=== PATIENT | male | born 1975 | race Caucasian/White ===

== ENCOUNTER 2022-09-28 14:03 | Outpatient (OUT) | payer BC, SELFPAY ==
--- NOTE | 2022-09-28 | XR_ITS ---
The [address] [address] Patient Name: KE ÁLVAREZ MRN: [id number] date: 1975 Sex: M Assigned Patient Location: [facility] Current Patient Location: Accession/Order Number: [id number] Exam Date: 09/28/2022 14:28 Report Date: 09/29/2022 09:00 At the request of: HELLEN MONK Procedure: XR foot CONSTANCE min 3V EXAMINATION: XR foot CONSTANCE min 3V HISTORY: IMAGING FOR PODIATRY ; bilateral foot pain COMPARISON: No relevant comparison available. FINDINGS: RIGHT FINDINGS: BONES: Marked lateral deviation of the toes. Dorsal lateral dislocation and proximal retraction persistent flexion of the second and third toes. Of the second toe at the metatarsophalangeal joint. SOFT TISSUES: No visible soft tissue swelling. OTHER: Negative. LEFT FINDINGS: BONES: Persistent flexion of the second toe. Mild lateral deviation at the first metatarsophalangeal joint. SOFT TISSUES: No visible soft tissue swelling. OTHER: Negative. XR/XR foot CONSTANCE min 3V IMPRESSION: RIGHT CONCLUSION: 1. Marked hallux valgus of the first through fourth toes, prominent bunion formation, and dislocation of the second metatarsophalangeal joint. 2. Persistent flexion of the second third toes suggest hammertoe. LEFT CONCLUSION: 1. Mild bunion formation and suspected hammertoe of second digit. Electronically authenticated by: WILL VÁZQUEZ Date: 09/29/2022 09:00
== END 2022-09-28 14:04 | disposition home or self-care (01) ==
LOC: RAD 14:03
PROVIDERS: Visit Provider Podiatrist Foot & Ankle Surgery
DX: S92.324A Nondisplaced fracture of second metatarsal bone, right foot, initial encounter for closed fracture (principal)
CPT/HCPCS: 73630

== ENCOUNTER 2023-01-26 08:56 | Outpatient (OUT) | payer BC, SELFPAY ==
--- NOTE | 2023-01-26 09:05 | ECG_ITS ---
The [facility] Test Date: 2023-01-26 Pat Name: KE ÁLVAREZ Department: Room: - Gender: Male Night Baker: : 1975 Requested By: HELLEN MONK Order Number: [id number] Reading MD: ARIELA SILVER Measurements Intervals [place] Rate: 51 P: 51 [place]: 171 QRS: 24 QRSD: 92 T: 28 QT: 419 QTc: 388 Interpretive Statements SINUS BRADYCARDIA No previous ECG available for comparison Electronically Signed On 01-27-2023 7:06:20 EST by ARIELA SILVER
--- NOTE | 2023-01-26 09:50 | P.GSHP_ITS ---
History of Present Illness History of Present Illness Chief complaint: hallux valgus of right foot, deformities of toes Narrative: Patient presents for preadmission testing. The patient states he's had right foot pain with toe deformities for at least ten years. 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 He denies numbness, tingling, weakness, or any other complaints. Review of Systems ROS Narrative REVIEW OF SYSTEMS: Negative except as stated in HPI, ten or more systems reviewed. Constitutional: No fever , chills, weakness ENT: No sore throat or epistaxis Cardiovascular: No edema, chest pain, palpitations, or activity intolerance Respiratory: No shortness of breath, cough, or wheezing Musculoskeletal: No joint pain or swelling Gastrointestinal: No abdominal pain, constipation, diarrhea, or vomiting Genitourinary: No dysuria or hematuria Neurological: No numbness, tingling, weakness, or headache Psychiatric: No mood changes PFSH PFSH Medical History (Updated 01/26/23 @ 09:22 by Rosie Mason NP) Hypertension ?I10 - Essential (primary) hypertension (ICD-10) Irregular heart beat ?I49.9 - Cardiac arrhythmia, unspecified (ICD-10) Toe dislocation ?S93.106A - Unspecified dislocation of unspecified toe(s), initial encounter (ICD-10) Hammertoe ?M20.40 - Other hammer toe(s) (acquired), unspecified foot (ICD-10) Toe deformity ?M20.60 - Acquired deformities of toe(s), unspecified, unspecified foot (ICD- 10) Hallux valgus ?M20.10 - Hallux valgus (acquired), unspecified foot (ICD-10) Surgical History (Updated 01/26/23 @ 09:22 by Rosie Mason NP) History of arthroscopy of shoulder ?Z98.890 - Other specified postprocedural states (ICD-10) History of arthroscopy of shoulder ?Z98.890 - Other specified postprocedural states (ICD-10) History of arthroscopy of shoulder ?Z98.890 - Other specified postprocedural states (ICD-10) Family History (Updated 01/26/23 @ 09:22 by Rosie Mason NP) Other CHF (congestive heart failure) Family history of lung cancer Social History (Updated 01/26/23 @ 09:17 by Rosie Mason NP) Within the past year, how often did you have a drink containing alcohol: monthly or less Smoking status: Never smoker Non-prescribed substance use: denies use Previous occupational history: construction Highest level of school completed/degree received: high school graduate Meds Home Medications and Allergies Home Medications Medication Instructions Recorded Confirmed Type duloxetine 20 mg capsule,delayed 20 mg PO DAILY 01/26/23 01/26/23 History release (Cymbalta) metoprolol tartrate 50 mg tablet 50 mg PO DAILY 01/26/23 01/26/23 History (Lopressor) Allergies Allergy/AdvReac Type Severity Reaction Status Date / Time No Known Drug Allergies Allergy Verified 01/26/23 09:15 Exam Narrative Exam Narrative: Constitutional: Awake, alert, comfortable, well-appearing, nontoxic, interactive, vital signs as charted Head: Normocephalic, atraumatic Neck: Supple, normal appearance, normal range of motion, no meningeal signs, no lymphadenopathy Respiratory: No respiratory distress, breath sounds clear Cardiovascular: Regular rate and rhythm, strong and regular heart tones Musculoskeletal: Obvious right hallux valgus with hammertoes of Toes two through five on the right foot, limited range of motion, good capillary refill, sensation intact Skin: No rashes or induration, no lesions, only visible skin inspected Neuro: No neurological deficits, normal sensation Psychiatric: Oriented ?3, normal affect Assessment and Plan Assessment and Plan (1) Toe dislocation: (2) Hammertoe: (3) Toe deformity: (4) Hallux valgus: Plan Right 1st MPJ fusion with possible bone graft, metatarsal osteotomy, soft tissue balancing and correction of toe contractures as needed scheduled with Dr. Brown 02/02/2023.
[2023-01-26 10:00] LABS: BUN Creatinine Ratio 22.9; Calcium 9.4 mg/dL (8.5-10.1); Carbon Dioxide 29.8 mmol/L (21.0-32.0); Chloride 102 mmol/L (98-107); Estimated GFR (African America >60 (>=60); Estimated GFR (Non-African Ame 52 (>=60); Glucose 103 mg/dL (74-106); Potassium 4.8 mmol/L (3.5-5.1); Sodium 140 mmol/L (136-145)
== END 2023-01-26 08:57 | disposition home or self-care (01) ==
LOC: PST 08:58
PROVIDERS: Visit Provider Podiatrist Foot & Ankle Surgery
DX: Z01.812 Encounter for preprocedural laboratory examination (principal); M20.11 Hallux valgus (acquired), right foot; M20.5X1 Other deformities of toe(s) (acquired), right foot
CPT/HCPCS: 36415; 80048; 93005; G0463

== ENCOUNTER 2023-02-02 06:40 | Day surgery (SDC) | payer BC, SELFPAY ==
[2023-01-26 09:40] VITALS: BP 144/88; PULSE 55; RESP 14; TEMP 36.3; O2SAT 97; BMI 28.6
[2023-02-02] VITALS (26 sets, daily range): BP systolic 101–138; BP diastolic 56–96; PULSE 65–97; RESP 5–24; TEMP 36.2–36.6; O2SAT 87–96; BMI 28.3
--- NOTE | 2023-02-02 | FL_ITS ---
[address] [address] Patient Name: KE ÁLVAREZ MRN: [id number] date: 1975 Sex: M Assigned Patient Location: [facility] Current Patient Location: [facility] Accession/Order Number: [id number] Exam Date: 02/02/2023 08:00 Report Date: 02/07/2023 09:13 At the request of: HELLEN MONK Procedure: FL fluoroscopy <1hr NON-READ EXAM: FL fluoroscopy <1hr NON-READ HISTORY: MPJ FUSION TECHNIQUE: FINDINGS: Please see Operative Report. Electronically authenticated by: RADIOLOGIST NO Date: 02/07/2023 09:13
--- OUTSIDE RECORDS SUMMARY | 2023-02-02 06:42 | XMS_ITS | CCD ---
Author Name Unknown Address [address] [place] [address] Organization [facility] Care Team Providers Care Unit Manager [employer] Name Role Phone ROXANN BARRIOS Unavailable Unavailable SOPHIE, ROXANN Unavailable Unavailable HOUSE, NAKIA Unavailable Unavailable PROVIDER, UNKNOWN Unavailable Unavailable PROVIDER, UNKNOWN Unavailable Unavailable HOUSE, NAKIA Unavailable Unavailable PROVIDER, UNKNOWN Unavailable Unavailable ROEHRS, ELIEL Unavailable Unavailable HOUSE, NAKIA Unavailable Unavailable PROVIDER, UNKNOWN Unavailable Unavailable PROVIDER, UNKNOWN Unavailable Unavailable HOUSE, NAKIA Unavailable Unavailable PROVIDER, UNKNOWN Unavailable Unavailable PROVIDER, UNKNOWN Unavailable Unavailable HOUSE, NAKIA Unavailable Unavailable HOUSE, DR CRUZ Admitting Unavailable HOUSE, DR CRUZ Attending Unavailable HOUSE, DR CRUZ Consulting Unavailable [place], DR ATTILA Aviles Consulting Unavailable HOUSE, DR CRUZ Attending Unavailable HOUSE, DR CRUZ Admitting Unavailable HOUSE, DR CRUZ Consulting Unavailable [facility], DR WILL Nichols Consulting Unavailable [facility], Occupation Attending Unavailable Problems Active Problems Problem Classification Problem Date Documented Da te Episodic/Chronic Sprains and strains (4 sources) Superior glenoid labrum lesion of left shoulder, initial encounter; Translations: [SUP GLND LABRUM LES LT SHLDR INIT] Onset: 12-18-2020 Episodic Unclassified (2 sources) CONTACT W/AND (SUSP) EXPOS COVID-19; Translations: [CONTACT W/AND (SUSP) EXPOS COVID-19] Onset: 02-15-2021 Viral infection (1 source) COVID-19; Translations: [COVID-19] Onset: 02-15-2021 Past or Other Problems Problem Classification Problem Date Documented Da te Episodic/Chronic Unclassified (1 source) CONTACT W/AND (SUSP) EXPOS COVID-19; Translations: [CONTACT W/AND (SUSP) EXPOS COVID-19] Onset: 02-11-2021 Results Test Name Value Interpretation Reference Range Facility Covid-19 PCR (CVDTBH)on SARS-CoV-2 (COVID-19) RNA PARIS+probe Ql (Unsp spec) Detected Critically abnormal NOT DETECTED [facility] Comment on above: Result Comment: This test is not yet deepak roved or cleared by the [place] FDA. When there are no FDA-approved or cleared tests available, and other criteria are met, FDA can make tests available under an emergency access mechanism called an Emergency Use Authorization (EUA). The EUA for this test is supported by the Apartment Maintenance Technician of Health and Human Service's (HHS's) declaration that circumstances exist to justify the emergency use of in vitro diagnostics for the detection and/or diagnosis of the virus that causes COVID-19. This EUA will remain in effect (meaning this test can be used) for the duration of the COVID-19 declaration justifying emergency of IVDs, unless it is terminated or revoked by FDA (after which the test may no longer be used). Performed By: #### [facility] #### [facility] [address] [place] [address] Dr. Devin Gordon MRI SHOULDER LT WO CONon MRI SHOULDER LT WO CON EXAMINATION: MRI SHOULDER LT WO CON HISTORY: Anterior to posterior tear of superior glenoid labrum of left shoulder COMPARISON: No relevant comparison available. TECHNIQUE: A variety of imaging planes and parameters were utilized for visualization of suspected pathology. Imaging was performed without contrast. FINDINGS: ROTATOR CUFF REGION CUFF TENDONS: Large chronic full-thickness tear of the supraspinatus tendon measuring 1.8 cm transversely. Increased signal in the supraspinatus and subscapularis tendons, tendinitis CUFF MUSCLES: Moderate to severe supraspinatus atrophy DELTOID: Normal. No significant atrophy or tear. LONG BICEPS TENDON: Normal. No abnormal signal, attrition, or tear. LABRUM/BICEPS ANCHOR SUPERIOR: Increased signal and fraying of the superior labrum, with detachment of the labrum and biceps tendon from the glenoid rim. Findings are most consistent with a Type II SLAP lesion. ANTERIOR/INFERIOR: Normal. No visible tear or attrition. POSTERIOR: Normal. No posterior labrum abnormality. CAPSULE Normal. No visible capsular laxity or thickening. AC JOINT REGION AC JOINT: Widening of the joint measuring up to 6.2 mm with fluid filling AC LIGAMENTS: Normal acromioclavicular ligament. CC LIGAMENTS: Normal coracoclavicular ligaments. ACROMION: Normal horizontal (Type I) configuration. SUBACROMIAL BURSA: Mild effusion. HYALINE CARTILAGE: Mild chondromalacia OTHER BONES: Subchondral edema/cystic changes of the greater tuberosity OTHER OBSERVATIONS: Negative. No other significant findings or glenohumeral effusion. 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 FINDINGS: ORBITS: Negative for a metallic foreign body. OTHER: Negative. IMPRESSION: 1. No radiopaque foreign body within the orbits. Electronically authenticated by: WILL VÁZQUEZ Date: 2020-12-18 14:06 Normal [facility] CT ANKLE/FOOT RIGHT W/O CONT [facility] 01-09-2017 CT ANKLE/FOOT RIGHT W/O CONTRAST EXAMINATIONCT ANKLE/FOOT RIGHT W/O/ED CLINICAL HISTORYevaluate fracture, dislocation Technologist Notes COMPARISON TECHNIQUEThin Axial images were performed thru the entire Right ankle and foot without intravenous contrast. Multiplanar reconstructions were obtained from the Axial Data Comments: None FINDINGS Nondisplaced intra-articular fracture is noted at the base of the 5th metatarsal extending along the articular surface near the cuboid. There is also a fracture of the articular surface of the cuboid as well as nondisplaced fracture involving the base of the 3rd and 2nd metatarsal with its articulation with the 2nd and 3rd cuneiform. The alignment of the base of the metatarsal cuneiform are maintained. There is anatomical alignment of the Lisfranc joints. There is plantar dislocation of the head of the 2nd metatarsal in relationship to the base of the proximal phalanx. There is also associated fracture of the metaphysis of the head of the 2nd metatarsal. There is soft tissue swelling along the plantar aspect in dorsum of the forefoot. At the level of the ankle there is a remote calcification in the region of the deep layers of the deltoid ligament from remote injury. No acute ankle injury is identified in the subtalar joints are maintained. There is a severe valgus deformity of the 1st metatarsophalangeal joint IMPRESSIONNondisplaced intra-articular fracture involving the base of the 2nd through 5th metatarsals as well as fracture of the intra-articular portion of the cuboid. There is fracture dislocation of the 2nd MTP. MACRONONE Normal [facility] XR ANKLE RIGHTon 01-09-2017 XR ANKLE RIGHT EXAMINATIONXR ANKLE RIGHT 3 VIEWS/ED CLINICAL HISTORYeval fx COMPARISONNone FINDINGSBone density is within normal limits. On the oblique projection there is irregularity of the anteromedial talar dome which may represent a fracture versus an osteochondral lesion. The ankle mortise is not abnormally widened. A couple corticated fragments are seen just inferior to the medial malleoli most likely reflective of remote injury versus accessory ossicles. There is no radiopaque foreign body. Please refer to the dedicated foot radiographs for description of fractures of the foot. IMPRESSION 1. Cortical irregularity involving the anterior medial talar dome only seen on the oblique projection which may represent a fracture versus osteochondral lesion. 2. Please see dedicated foot radiograph for description of foot fractures. KARELYI have reviewed the study and interpretationwith the resident and agree with the findings. Normal [facility] XR FOOT RIGHTon 01-09-2017 XR FOOT RIGHT EXAMINATIONXR FOOT R IGHT 3 VIEWS/ED CLINICAL HISTORYeval fx COMPARISONNone FINDINGSBone density is within normal limits. There is an oblique fracture through the distal 3rd shaft of the 2nd metatarsal with lateral dislocation of the 2nd metatarsophalangeal joint. There is an oblique fracture through the proximal 1/3 shaft of the 3rd through 5th metatarsals with mild splaying of the fracture fragments. There is questionable lucencies involving the distal most aspect of the cuboid and a fracture is not excluded. A prominent hallux valgus deformity is noted with overlying soft tissue swelling compatible with a bunion. No radiopaque foreign body. There is diffuse soft tissue swelling of the forefoot. IMPRESSION 1. Fractures involving the 2nd through 5th metatarsals with lateral dislocation of the 2nd metatarsophalangeal joint and possible fracture of the cuboid. Given the complexity of injury a dedicated CT of the foot may be of benefit. ROSA have reviewed the study and interpretationwith the resident and agree with the findings. Normal [facility] Encounters Encounter Date Encounter Type Care Provider Facility Start: 05-23-2022 ambulatory Occupation [facility]il [facility] Start: 02-11-2021 End: 02-11-[address] ANTHONY MONTERROSO Facility:[facility] Start: 12-18-2020 End: 12-19-[address] ATTILA RUTH Facility:[facility] Start: 01-10-2017 Ambulatory ROXANN BARRIOS Facilit y:[facility] Start: 01-09-2017 End: 01-09-2017 Emergency department patient visit UNKNOWN PROVIDER Facility:[facility] Start: 01-09-2017 Ambulatory UNKNOWN PROVIDER Facili ty:[facility] Procedures Date Procedure Procedure Detail Performing Clinician Start: 01-09-2017 Basic metabolic pane l calcium total ROXANN BARRIOS Start: 01-09-2017 Blood count complete auto&auto difrntl wbc ROXANN BARRIOS Start: 01-09-2017 CRUTCHES-SIZE AND DISPENSE ROXANN BARRIOS Start: 01-09-2017 Ct lower extremity w /o contrast material ROXANN BARRIOS Start: 01-09-2017 DISCHARGE PATIENT ROXANN BARRIOS Start: 01-09-2017 NPO ROXANN RAMÍREZ HFELD Start: 01-09-2017 Prothrombin time ROXANN RICHARDCHDANIELLE Start: 01-09-2017 Radex ankle complete minimum 3 views ROXANN BARRIOS Start: 01-09-2017 Radex foot complete minimum 3 views ROXANN BARRIOS Start: 01-09-2017 Thromboplastin time partial plasma/whole blood ROXANN BARRIOS Payers Date Payer Category Payer Self-pay 2016 Unknown [id number] 1975 Unknown [id number] 1975 Unknown [id number] 1960 [facility] [id number] Unknown [id number] Summary Purpose Family History No Family History Records FoundNo Family History Records FoundNo Family History Records Found Advance Directives No Advanced Directives Records FoundNo Advanced Directives Records FoundNo Advanced Directives Records Found Additional Source Comments (unrecognized sect ion and content) No Status Records FoundNo Status Records FoundNo Status Records Found INFORMATION SOURCE (unrecogn ized section and content) DATE CREATED AUTHOR 08/01/2017 [facility] [employer] [employer] [facility] DATE CREATED AUTHOR AUTHOR'S PIERRE ATION 02/15/2021 [facility] DATE CREATED AUTHOR AUTHOR'S ORGANAMEENA ATION 05/24/2022 [facility] FOR RECORDS PERTAINING TO PATIENTS WHO ARE OR HAVE BEEN ENROLLED IN A CHEMICAL DEPENDENCY/SUBSTANCEABUSE PROGRAM, SOME INFORMATION MAY BE OMITTED. This clinical summary was aggregated from multiple sources. Caution should be exercised in using it in the provision of clinical care. This summary normalizes information from multiple sources, and as a consequence, information in this document may materially change the coding, format and clinical context of patient data. In addition, data may be omitted in some cases. CLINICAL DECISIONS SHOULD BE BASED ON THE PRIMARY CLINICAL RECORDS. [employer] [facility]. provides no warranty or guarantee of the accuracy or completeness of information in this document.
[2023-02-02 06:49] LABS: Basophils Percent Auto 0.5 % (0.2-2.0); Eosinophils Absolute Auto 0.2 10^3/uL (0.0-0.7); Eosinophils Percent Auto 2.5 % (0.9-7.0); Hematocrit 44.1 % (42.0-54.0); Hemoglobin 14.6 g/dL (14.0-18.0); Immature Granulocytes Abs Auto 0.01 10^3/uL (0.00-0.03); Immature Granulocytes Pct Auto 0.2 % (0.0-0.5); Lymphocytes Absolute Auto 2.9 10^3/uL (1.2-3.8); Lymphocytes Percent Auto 49.2 % (20.5-60.0); Mean Corpuscular HGB Conc 33.1 g/dL (29.9-35.2); Mean Corpuscular Hemoglobin 28.5 pg (25.9-34.0); Mean Corpuscular Volume 86.1 fL (80.0-94.0); Mean Platelet Volume 8.6 fL (9.5-13.5); Monocytes Absolute Auto 0.6 10^3/uL (0.3-0.8); Monocytes Percent Auto 9.6 % (1.7-12.0); Neutrophils Absolute Auto 2.2 10^3/uL (1.4-6.5); Platelet Count 237 10^3/uL (150-450); Red Blood Count 5.12 10^6/uL (4.70-6.10); Red Cell Distribution Width 12.5 % (11.0-15.0); White Blood Count 5.9 10^3/uL (4.0-11.0)
[2023-02-02 07:01] LABS: Glucometer 94 mg/dL (74-106)
[2023-02-02] MEDS: LACTATED RINGER'S SOLUTION 1,000 ML 50 ML IV ×3 (07:14→19:13)
[2023-02-02] MEDS: CEFAZOLIN SODIUM/DEXTROSE,ISO 2 GM/50 ML PIGGYBACK IV ×2 (08:15→18:26)
--- NOTE | 2023-02-02 08:28 | PC.NURSE ---
time out performed at 0756 2 mg versed was given, 0800 Physician cleansed and prepped skin 0800 another 2 mg versed given . Needle inserted nerve stimulator attached and turned on. Physician located area to block on popliteal area. picture was captured. Medication was injected as directed by physician. Block was completed at 0812.
--- NOTE | 2023-02-02 13:11 | XR_ITS ---
The [address] [address] Patient Name: KE ÁLVAREZ MRN: [id number] date: 1975 Sex: M Assigned Patient Location: [facility] Current Patient Location: Accession/Order Number: [id number] Exam Date: 02/02/2023 13:35 Report Date: 02/04/2023 17:37 At the request of: ADDI ABDI Procedure: XR foot RT min 3V EXAM: XR foot RT min 3V HISTORY: postop xr pacu COMPARISON: 09/28/2022 FINDINGS/IMPRESSION: 1. No acute fracture or dislocation 2. Plate and screw fixation of the first metatarsophalangeal joint. No apparent hardware complication. K wire fixation of the second toe. Osteotomy fixation screws of the distal aspect of the second metatarsal. No apparent hardware complication. 3. Resection of the distal aspects of the third and fourth proximal phalanges. 4. Normal alignment of the mid foot. Electronically authenticated by: TOMASA RAY Date: 02/04/2023 17:37
[2023-02-02 13:28] LABS: Glucometer 96 mg/dL (74-106)
[2023-02-02] MEDS: OXYCODONE HCL/ACETAMINOPHEN 5MG/325MG 1 TAB PO (14:09)
[2023-02-02] MEDS: HYDROMORPHONE HCL 1 MG/ML CARTRIDGE IV (14:20)
[2023-02-02] MEDS: HYDROMORPHONE HCL 0.5 MG/0.5 ML SYRINGE IV ×4 (14:26→14:45)
--- NOTE | 2023-02-02 15:25 | PM.ORONB ---
Brief Operative Note Date of procedure: 02/02/23 Pre-op diagnosis: right hallux valgus, pre-dislocation syndrome, hammertoes Post-op diagnosis: other (right hallux valgus, pre-dislocation syndrome 2nd, 3rd & 4th metatarsal phalangeal joint with dislocation of the 2nd toe & subluxation of 3rd & 4th toes, hammertoe contractures 2, 3, 4 & 5) Procedure: PROCEDURE(S) PERFORMED: 1. First metatarsal phalangeal joint fusion 2. Cheryl osteotomy of 2nd metatarsal 3. correction of hammertoe contractures with PIPJ arthroplasties of toes 2, 3, 4, 5 4. Capsulotomy of metatarsal phalangeal joints three and four 5. Application of short leg splint 6. Intraoperative fluoroscopy examination *All procedures were performed on the RIGHT foot INDICATION FOR PROCEDURE: patient is a 47-year-old male who presented to me relating to worsening pain and deformity associated with bilateral feet with his right being more symptomatic. Patient has had consistent pain and dysfunction for ten years or more. Despite OTC pain medicine including ibuprofen and Tylenol, shoe modification and activity modification his pain and dysfunction only worsened. He presented to me for surgical consultationand on examination he had a severe bunion deformity with rigid contractures of the lesser toes, dorsal dislocation of the 2nd toe and subluxation of metatarsophalangeal joints three and four. his x-rays confirmed the severity of his forefoot deformity. I recommended the above procedures and discussed potential risks benefits and possible complications. Of note, given the severity of his contractures and deformity I emphasized with the patient that he is at higher risk for wound healing complication, vascular compromise of one or multiple toes as well as recurrence. patient was understanding of the risks and all his questions were answered to satisfaction. INTRAOPERATIVE FINDINGS: severe rigid contractures of all toes. Severe hallux valgus deformity with increased 1st?2nd intermetatarsal angle. Significant contracture of the adductor hallucis tendon. Dorsal dislocation of 2nd metatarsal phalangeal joint with the proximal phalanx of the 2nd toe sitting on top of the metatarsal neck. Despite dorsal capsulotomy and release of all periarticular soft tissues was unable to relocate the 2nd toe for the 2nd metatarsal osteotomy was performed. The base of the 2nd proximal phalanx was dystrophic and deformed however cartilage was intact. Subluxation of the 3rd and 4th metatarsophalangeal joints however with capsulotomy these were able to reduce. patient contractures at the proximal interphalangeal joints of toes two through five. Bone quality was within normal limits. PROCEDURE IN DETAIL: Patient was identified in pre op and consent was reviewed. Correct side and site were identified and marked. Pre-op antibiotics were started. Patient was brought to OR suite and place on table in a supine position. General anesthesia was administered. A tourniquet was applied. Operative extremity was prepped and draped in usual sterile fashion. Formal time-out was performed and the foot/ankle were exsanguinated and tourniquet inflated. Incision created over dorsal aspect of the 1st MPJ. Bleeders coagulated. EHL protected throughout the procedure. Capsulotomy performed and McGlammry elevator inserted into 1st MPJ. Guide Pin place in 1st metatarsal head. Conical reamers used on 1st metatarsal head to remove cartilage and subchondral bone. Guide pin removed. Conical reamers used on proximal phalanx in a similar manner. 2.0 mm drill used to on each side of the joint. The site was irrigated. 1cc of bone allograft was then packed into the fusion site. A stab incision was placed on the medial aspect of the hallux and blunt dissection down to the proximal phalanx base was performed. The great toe was then reduced despite severe contracture of the adductor hallucis tendon. Clinically he is able to get the toe in an ideal position however as noted on fluoroscopy hallux valgus persisted. When fully reduced on x-ray clinically the toe appeared to be in varus given the patient's foot and overall lower extremity alignment. The toe was reduced to the clinically ideal position and guide wires were then used to pin the MPJ under fluoroscopic guidance. Position was checked both on the table and under fluoroscopy. the intermetatarsal angle did reduce. A saw was used to contour the dorsal and medial aspect of the 1st metatarsal and proximal phalanx to accommodate plate fixation. 3.5 mm cannulated screws were then inserted according to the air bag curer's directions over the guidewires noting compression at the fusion site. A 3.[address] was place over the fusion site and temporarily fixed. Then social insurance analyst holes were drilled for locking 3.5 mm screws which were measured and placed according to the manufactor's standard directions. Again position was checked under fluoroscopy as well as on the table. Temporary fixation was removed and additional screws were placed. Again position of the great toe and hardware placement were checked on the table and under fluoroscopy. The surgical site was irrigated with copious amounts of sterile saline. A dorsal incision over the 2nd digit and extended over the 2nd metatarsal was utilized to expose the extensor tendon. The tendon was cut in a z-type fashion and reflected dorsally and proximally exposing the proximal interphalangeal joint and dorsal 2nd metatarsal. A sagittal saw was used to remove the head of the proximal phalanx. Capsulotomy of the 2nd metatarsophalangeal joint was performed sharply and eventually all the soft tissues surrounding the base of the 2nd proximal phalanx were released. however despite release of the soft tissues I was unable to relocate the 2nd toe. Incision was then placed on the plantar aspect of the foot longitudinally over the distal 2nd metatarsal. Then a sagittal saw was used to create an osteotomy parallel to the weightbearing surface of the foot. The metatarsal head was then translated proximally and temporarily fixated with a K wire. Position was checked under fluoroscopy followed by two 2.0 mm snap off screws which were placed from a dorsal plantar direction. A rongeur was used to remove the dorsal cortical shelf. Temporary fixation was removed. Surgical site was irrigated with copious amounts of sterile saline. this point the procedure the tourniquet had reached 119 minutes and was dropped with a prompt hyperemic response being noted. The 1st MPJ surgical site was irrigated again and this incision was then closed in layers. the toe was held in a reduced position and pinned with a 1.6 mm K wire across the metatarsal phalangeal joint under fluoroscopic guidance. The extensor tendon was then repaired in a lengthened position and surgical site was irrigated. The incision was then closed in layers. The tourniquet had been down for greater than twenty minutes so the extremity was exsanguinated and the tourniquuet was reinflated. With attention to the 3rd digit a dorsal incision was created over the PIPJ. Sharp and blunt dissection down to the extensor tendon was performed. The tendon was incised in a z-type fashion then reflected proximally and distally. A sagittal saw was used to remove the proximal phalanx head. the alignment at the PIPJ improved however contracture at the metatarsophalangeal joint persisted therefore the incision was extended proximally over the metatarsal phalangeal joint. Capsulotomy was performed using a scalpel as well as a McGlamry elevator. Then loading the foot the toe sat in a reduced position. The site was flushed with sterile saline. The tendon was repaired in a lengthened position with absorbable suture. With attention to the 4th digit a dorsal incision was created over the PIPJ. Sharp and blunt dissection down to the extensor tendon was performed. The tendon was incised in a z-type fashion then reflected proximally and distally. A sagittal saw was used to remove the proximal phalanx head. the alignment at the PIPJ improved however contracture at the metatarsophalangeal joint persisted therefore the incision was extended proximally over the metatarsal phalangeal joint. Capsulotomy was performed using a scalpel as well as a McGlamry elevator. Then loading the foot the toe sat in a reduced position. The site was flushed with sterile saline. The tendon was repaired in a lengthened position with absorbable suture. With attention to the 5th digit a semi-elliptical dorsal incision was created over the PIPJ. Sharp and blunt dissection down to the extensor tendon was performed. The tendon was incised transversely then reflected proximally. A sagittal saw was used to remove the proximal phalanx head. The site was flushed with sterile saline. The tendon was repaired with absorbable suture. The tourniquet was deflated with a prompt hyperemic response and capillary refill time was pressed the tip the toe. The incisions were then closed in layers. A dry sterile dressing consisting of Xeroform on the incisions followed by 4 x 4 gauze, ABDs, and Kerlix were applied. Multiple layers of cast padding were then applied to ensure all bony prominences were well-padded. A plaster posterior splint was then applied which was held in place by Nigel wraps. Capillary refill time to all digits was evaluated and had appropriate response. Patient tolerated the procedure and anesthesia well and was transported to the recovery room with vital signs stable and brisk capillary refill time to the toes. POSTOPERATIVE PLAN: plan initially was to discharge patient home however we were unable to control patient's pain with oral pain medicine therefore decision was made to admit for observation and pain control. Transfer to med/surg under hospitalist's care NWB operative foot/ankle Ice and elevation Aniyah-op antibiotics, multimodal pain medication and DVT prophylaxis ordered Estimated LOS 1-2 nights Will follow *NWB x 1 week followed by partial protected heel WB x2 weeks Implants: Medline plates/screws 1.6 mm k-wire 1 cc of sparc allograft Anesthesia: regional and General-LMA Surgeon: Roberto Brown Radio Performer: Hamilton Del Rosario Estimated blood loss (mL): 25 Condition: stable Disposition: observation
--- NOTE | 2023-02-02 19:23 | PC.NURSE ---
Denies any pain, numbness, or tingling to right foot.
[2023-02-02] MEDS: PREGABALIN 75 MG CAPSULE PO (20:02)
[2023-02-02] MEDS: KETOROLAC TROMETHAMINE 30 MG/ML VIAL 15 MG IVP (20:02)
[2023-02-02] MEDS: ENOXAPARIN SODIUM 40 MG/0.4 ML SYRINGE SUBQ (20:03)
[2023-02-03] MEDS: CEFAZOLIN SODIUM/DEXTROSE,ISO 2 GM/50 ML PIGGYBACK IV ×2 (01:20→07:39)
[2023-02-03] MEDS: OXYCODONE HCL 15 MG TABLET PO ×2 (01:24→07:21)
[2023-02-03 05:22] VITALS: BP 125/71; PULSE 80; RESP 20; TEMP 36.9; O2SAT 93
--- NOTE | 2023-02-03 05:23 | PC.NURSE ---
Nigel wrap to right leg is clean, dry, and intact. Patient denies any pain, numbness, or tingling at this time. Visible digit is pink, warm, and dry.
[2023-02-03] MEDS: ACETAMINOPHEN 500 MG TABLET 1000 MG PO (07:20)
[2023-02-03] MEDS: ALENDRONATE SODIUM 70 MG TABLET PO (07:21)
[2023-02-03 07:40] VITALS: BP 135/78; PULSE 76; RESP 16; TEMP 36.7; O2SAT 92
--- NOTE | 2023-02-03 07:42 | PM.PN ---
Progress Note: Subjective Subjective Interval history: Patient seen resting comfortably at bedside this a.m. POD #1 s/p right first MTP fusion, second metatarsal shortening osteotomy, correction of hammertoes with PIPJ arthroplasty digits 234 and 5 DOS 02/02/2023. States pain this a.m. is mild and well-controlled with p.o. oxycodone. Denies any acute events overnight. Denies any other acute lower extremity complaints and denies any constitutional symptoms at time of visit. Exam Narrative Exam Narrative: RLE dressing left CDI. CFT intact to digits. No erythema or edema proximal distal to dressing. Light touch sensation intact to digits. Range of motion lesser digits present. No pain with calf or thigh compression. Constitutional Vital Signs, click to edit/add: Last Vital Signs Temp 98.4 F 02/03/23 05:22 Pulse 80 02/03/23 05:22 Resp 20 02/03/23 05:22 BP 125/71 02/03/23 05:22 Pulse Ox 93 L 02/03/23 05:22 O2 Del Method Room Air 02/03/23 05:22 O2 Flow Rate 3 02/02/23 15:15 Progress Note: A&P Assessment and Plan (1) Hallux valgus: (2) Toe deformity: (3) Hammertoe: (4) Other acute postoperative pain: Plan Patient examined and evaluated. All findings discussed with patient all questions answered to patient's satisfaction. Labs and imaging reviewed. RLE dressing to be left CDI until follow-up. Maintain nonweightbearing to right lower extremity. Use crutches for assistance. He asked about rolling knee scooter, and provided information where to obtain 1 if desired. Postop meds sent to pharmacy yesterday. Pain better controlled today only requiring p.o. medications. Stable to DC from podiatry's perspective they will follow-up in 1 week. Rest per primary, please call with any questions or concerns.
[2023-02-03 07:54] VITALS: BP 135/78; PULSE 76; RESP 16; TEMP 36.7; O2SAT 92
[2023-02-03 07:56] VITALS: RESP 16
[2023-02-03] MEDS: PREGABALIN 75 MG CAPSULE PO (08:00)
[2023-02-03] MEDS: METOPROLOL TARTRATE 50 MG TABLET PO (08:04)
[2023-02-03] MEDS: DULOXETINE HCL 20 MG CAPSULE.DR PO (08:04)
== END 2023-02-03 09:46 | disposition home or self-care (01) ==
LOC: SURGOUT 07:42 → MS 15:40
PROVIDERS: Visit Provider Podiatrist Foot & Ankle Surgery
PROC: (CPT 1480; principal; 2023-02-02 08:00)
DX: M20.11 Hallux valgus (acquired), right foot (principal); M20.5X1 Other deformities of toe(s) (acquired), right foot; I10 Essential (primary) hypertension; M20.41 Other hammer toe(s) (acquired), right foot; M25.871 Other specified joint disorders, right ankle and foot; G89.18 Other acute postprocedural pain; S93.104S Unspecified dislocation of right toe(s), sequela
CPT/HCPCS: 28285 ×4; 28308; 28750; 36415; 64445; 73630; 76000; 82948; 85025; C1713; J1170; J2704

== ENCOUNTER 2023-02-21 09:04 | Outpatient (OUT) | payer BC, SELFPAY ==
--- NOTE | 2023-02-21 | XR_ITS ---
The [address] [address] Patient Name: KE ÁLVAREZ MRN: [id number] date: 1975 Sex: M Assigned Patient Location: [facility] Current Patient Location: Accession/Order Number: [id number] Exam Date: 02/21/2023 09:05 Report Date: 02/21/2023 09:56 At the request of: HELLEN MONK Procedure: XR foot RT min 3V PROCEDURE: XR foot RT min 3V COMPARISON: 02/02/2023 HISTORY: RIGHT FOOT P/O IMAGING FINDINGS: BONES:Stable fusion first metatarsal-phalangeal joint. Shave osteotomy medial head of the first metatarsal. Osteotomy and screw placement at of the second metatarsal. Single pin through the second toe. Resection head of the second through fifth proximal phalanges. No significant interval change SOFT TISSUES:Dorsal soft tissue swelling. EFFUSION:None visible. OTHER: Negative. XR/XR foot RT min 3V IMPRESSION: Stable postsurgical changes Electronically authenticated by: ATTILA RUTH Date: 02/21/2023 09:56
--- OUTSIDE RECORDS SUMMARY | 2023-02-21 09:07 | XMS_ITS | CCD ---
Author Name Unknown Address [address] [place] [address] Organization [facility] Care Team Providers Care Last Turner Name Role Phone ROXANN BARRIOS Unavailable Unavailable [...] Attending Unavailable HOUSE, DR CRUZ Consulting Unavailable [place], DR ATTILA Aviles Consulting Unavailable HOUSE, DR CRUZ Attending Unavailable HOUSE, DR CRUZ Admitting Unavailable HOUSE, DR CRUZ Consulting Unavailable [facility], DR WILL Nichols Consulting Unavailable [facility], Occupation Attending Unavailable Problems Active Problems [...] spec) Detected Critically abnormal NOT DETECTED [facility] Comment on above: Result Comment: This test is not yet deepak roved or cleared by the [place] FDA. When there are no FDA-approved or cleared tests available, and other criteria are met, FDA can make tests available under an emergency access mechanism called an Emergency Use Authorization (EUA). The EUA for this test is supported by the [place] of Health and Human Service's (HHS's) declaration [...] longer be used). Performed By: #### C [facility] #### [facility] [address] [place] [address] Dr. Devin Gordon MRI SHOULDER LT WO [...] by: ATTILA RUTH Date: 2020-12-18 18:51 Normal [facility] XR FOREIGN BODY EYEon 2020 XR FOREIGN BODY EYE EXAMINATION: XR FOREIGN BODY EYE HISTORY: Foreign body in eye COMPARISON: No relevant comparison available. FINDINGS: ORBITS: Negative for a metallic foreign body. OTHER: Negative. IMPRESSION: 1. No radiopaque foreign body within the orbits. Electronically authenticated by: WILL VÁZQUEZ Date: 2020-12-18 14:06 Normal [facility] CT ANKLE/FOOT RIGHT W/O CONT [facility] 01-09-2017 CT ANKLE/FOOT RIGHT W/O CONTRAST EXAMINATIONCT [...] and agree with the findings. Normal The [facility] Encounters Encounter Date Encounter Type Care Provider Facility Start: 05-23-2022 ambulatory Occupation Health Facil ity:[facility] Start: 02-11-2021 End: 02-11-[address] ANTHONY MONTERROSO Facility:[facility] Start: 12-18-2020 End: 12-19-[address] ATTILA RUTH Facility:[facility] Start: 01-10-2017 Ambulatory ROXANN BARRIOS Facilit y:[facility] Start: 01-09-2017 End: 01-09-2017 Emergency department patient visit UNKNOWN PROVIDER Facility:[facility] Start: 01-09-2017 Ambulatory UNKNOWN PROVIDER Facili ty:[facility] Procedures Date Procedure Procedure Detail Performing [...] Date Payer Category Payer Self-pay 2016 Unknown [id number] 1975 Unknown [id number] 1975 Unknown [id number] 1960 [facility] [id number] Unknown [id number] .[id number] Summary Purpose Family History No Family History Records FoundNo Family History Records FoundNo Family History Records Found Advance Directives No Advanced Directives Records FoundNo Advanced Directives Records FoundNo Advanced Directives Records Found Additional Source Comments (unrecognized sect ion and content) No Status Records FoundNo Status Records FoundNo Status Records Found INFORMATION SOURCE (unrecogn ized section and content) DATE CREATED AUTHOR 08/01/2017 [facility] DATE CREATED AUTHOR AUTHOR'S PIERRE ATION 02/15/2021 The [facility] DATE CREATED AUTHOR AUTHOR'S ORGANAMEENA ATION 05/24/2022 [facility] FOR RECORDS PERTAINING TO PATIENTS WHO [...] BE BASED ON THE PRIMARY CLINICAL RECORDS. [employer] [facility]. provides no warranty or guarantee of the accuracy or completeness of information in this document.
== END 2023-02-21 09:05 | disposition home or self-care (01) ==
LOC: RAD 09:04
PROVIDERS: Visit Provider Podiatrist Foot & Ankle Surgery
DX: M20.11 Hallux valgus (acquired), right foot (principal); Z98.890 Other specified postprocedural states
CPT/HCPCS: 73630

== ENCOUNTER 2023-02-28 09:08 | Outpatient (OUT) | payer BC, SELFPAY ==
--- NOTE | 2023-02-28 | XR_ITS ---
The [address] [address] Patient Name: KE ÁLVAREZ MRN: [id number] date: 1975 Sex: M Assigned Patient Location: [facility] Current Patient Location: [facility] Accession/Order Number: [id number] Exam Date: 02/28/2023 09:15 Report Date: 02/28/2023 09:36 At the request of: HELLEN MONK Procedure: XR foot RT min 3V PROCEDURE: XR foot RT min 3V COMPARISON: 02/21/2023. 02/02/2023 HISTORY: RIGHT FOOT PAIN FINDINGS: BONES:Stable fusion first metatarsal-phalangeal joint with dorsal plate and screws. Shave osteotomy medial head of the first metatarsal. Resection of the head second third and fourth proximal phalanges. Osteotomy and screw placement at of the second metatarsal. Single external fixator wires through the second digit. No acute fracture or dislocation SOFT TISSUES:Dorsal forefoot soft tissue swelling EFFUSION:None visible. OTHER: Negative. XR/XR foot RT min 3V IMPRESSION: Stable postsurgical changes Electronically authenticated by: ATTILA RUTH Date: 02/28/2023 09:36
--- OUTSIDE RECORDS SUMMARY | 2023-02-28 09:11 | XMS_ITS | CCD ---
Author Name Unknown Address [address] [place] [address] Organization [facility] Care Team Providers Care Machine Shop Inspector Name Role Phone ROXANN BARRIOS Unavailable Unavailable SOPHIE, ROXANN Unavailable Unavailable HOUSE, NAKIA Unavailable Unavailable PROVIDER, UNKNOWN Unavailable Unavailable PROVIDER, UNKNOWN Unavailable Unavailable HOUSE, NAKIA Unavailable Unavailable PROVIDER, UNKNOWN Unavailable Unavailable ROEHRS, KE Unavailable Unavailable HOUSE, NAKIA Unavailable Unavailable PROVIDER, UNKNOWN Unavailable Unavailable PROVIDER, UNKNOWN Unavailable Unavailable HOUSE, NAKIA Unavailable Unavailable PROVIDER, UNKNOWN Unavailable Unavailable PROVIDER, UNKNOWN Unavailable Unavailable HOUSE, NAKIA Unavailable Unavailable HOUSE, DR CRUZ Admitting Unavailable HOUSE, DR CRUZ Attending Unavailable HOUSE, DR CRUZ Consulting Unavailable [place], DR ATTILA Aviles Consulting Unavailable HOUSE, DR CRUZ Attending Unavailable HOUSE, DR CRUZ Admitting Unavailable HOUSE, DR CRUZ Consulting Unavailable [facility], DR WILL Nichols Consulting Unavailable [facility], Occupation Attending Unavailable Problems Active Problems Problem [...] spec) Detected Critically abnormal NOT DETECTED [facility] Comment on above: Result Comment: This test is not yet deepak roved or cleared by the [place] FDA. When there are no FDA-approved or cleared tests available, and other criteria are met, FDA can make tests available under an emergency access mechanism called an Emergency Use Authorization (EUA). The EUA for this test is supported by the [place] of Health and Human Service's (HHS's) declaration [...] longer be used). Performed By: #### [facility] #### [facility] [address] [place] [address] Dr. Devin Gordon MRI SHOULDER LT WO [...] by: ATTILA RUTH Date: 2020-12-18 18:51 Normal [facility] XR FOREIGN BODY EYEon 2020 XR FOREIGN BODY EYE EXAMINATION: XR FOREIGN BODY EYE HISTORY: Foreign body in eye COMPARISON: No relevant comparison available. FINDINGS: ORBITS: Negative for a metallic foreign body. OTHER: Negative. IMPRESSION: 1. No radiopaque foreign body within the orbits. Electronically authenticated by: WILL VÁZQUEZ Date: 2020-12-18 14:06 Normal [facility] CT ANKLE/FOOT RIGHT W/O CONT [facility] 01-09-2017 CT ANKLE/FOOT RIGHT W/O CONTRAST [...] foot radiograph for description of foot fractures. KRAELYI have reviewed the study and interpretationwith the [...] and agree with the findings. Normal The [facility] Encounters Encounter Date Encounter Type Care Provider Facility Start: 05-23-2022 ambulatory Occupation Health Facil ity:[facility] Start: 02-11-2021 End: 02-11-[address] ANTHONY MONTERROSO Facility:[facility] Start: 12-18-2020 End: 12-19-[address] ATTILA RUTH Facility:[facility] Start: 01-10-2017 Ambulatory ROXANN BARRIOS Facilit y:[facility] Start: 01-09-2017 End: 01-09-2017 Emergency department patient visit UNKNOWN PROVIDER Facility:[facility] Start: 01-09-2017 Ambulatory UNKNOWN PROVIDER Facili ty:[facility] Procedures Date Procedure Procedure Detail Performing [...] Date Payer Category Payer Self-pay 2016 Unknown [id number] 1975 Unknown [id number] 1975 Unknown [id number] .[id number] 1960 [facility] [id number] Unknown [id number] Summary Purpose Family History No Family History Records FoundNo Family History Records FoundNo Family History Records Found Advance Directives No Advanced Directives Records FoundNo Advanced Directives Records FoundNo Advanced Directives Records Found Additional Source Comments (unrecognized sect ion and content) No Status Records FoundNo Status Records FoundNo Status Records Found INFORMATION SOURCE (unrecogn ized section and content) DATE CREATED AUTHOR 08/01/2017 [facility] DATE CREATED AUTHOR AUTHOR'S PIERRE ATION 02/15/2021 [facility] DATE CREATED AUTHOR AUTHOR'S ORGANAMEENA ATION 05/24/2022 [facility] FOR RECORDS PERTAINING TO PATIENTS [...] BE BASED ON THE PRIMARY CLINICAL RECORDS. [address] [facility]. provides no warranty or guarantee of the accuracy or completeness of information in this document.
== END 2023-02-28 09:09 | disposition home or self-care (01) ==
LOC: RAD 09:08
PROVIDERS: Visit Provider Podiatrist Foot & Ankle Surgery
DX: S92.351D Displaced fracture of fifth metatarsal bone, right foot, subsequent encounter for fracture with routine healing (principal); Z98.890 Other specified postprocedural states
CPT/HCPCS: 73630

== ENCOUNTER 2023-03-21 09:22 | Outpatient (OUT) | payer BC, SELFPAY ==
--- NOTE | 2023-03-21 | XR_ITS ---
The [address] [address] Patient Name: KE ÁLVAREZ MRN: [id number] date: 1975 Sex: M Assigned Patient Location: [facility] Current Patient Location: [facility] Accession/Order Number: [id number] Exam Date: 03/21/2023 09:28 Report Date: 03/21/2023 12:31 At the request of: HELLEN MONK Procedure: XR foot RT min 3V PROCEDURE: XR foot RT min 3V DATE: 03/21/2023 8:28 AM BLANKER OPERATOR COMPARISONS: 02/28/2023 CLINICAL INDICATION: RIGHT FOOT PAIN FINDINGS: There is no evidence of fractures or other acute osseous abnormalities. Postop fusion is noted of the first metatarsal phalangeal joint. The hardware is intact. Hallux valgus deformity is again noted, stable. Postop changes are noted of the distal second, third, fourth and fifth small phalanges, stable. Postop changes are noted of the distal second metatarsal. Previously noted a longitudinal pin of the second toe extending to the second metatarsal has been removed in the interval. XR/XR foot RT min 3V IMPRESSION: Right foot radiographs show no evidence of acute abnormalities. Stable postop changes Electronically authenticated by: CUCO COPE Date: 03/21/2023 12:31
== END 2023-03-21 09:23 | disposition home or self-care (01) ==
LOC: RAD 09:23
PROVIDERS: Visit Provider Podiatrist Foot & Ankle Surgery
DX: M20.11 Hallux valgus (acquired), right foot (principal); Z98.890 Other specified postprocedural states
CPT/HCPCS: 73630

== ENCOUNTER 2023-04-25 09:18 | Outpatient (OUT) | payer BC, SELFPAY ==
--- NOTE | 2023-04-25 | XR_ITS ---
The [address] [address] Patient Name: KE ÁLVAREZ MRN: [id number] date: 1975 Sex: M Assigned Patient Location: Current Patient Location: Accession/Order Number: [id number] Exam Date: 04/25/2023 09:22 Report Date: 04/26/2023 10:04 At the request of: HELLEN MONK Procedure: XR foot RT min 3V PROCEDURE: XR foot RT min 3V COMPARISON: 03/21/2023 HISTORY: RIGHT FOOT PAIN FINDINGS: BONES:Shave osteotomy medial head of the first metatarsal. Fusion the first metatarsal-phalangeal joint with a plate and screws. No mechanical failure. Remote osteotomy transfixed with 2 screws head of the second metatarsal. Remote resection head of the second through fifth proximal phalanges. No acute fracture, dislocation or mechanical failure SOFT TISSUES:Negative. No visible soft tissue swelling. EFFUSION:None visible. OTHER: Negative. XR/XR foot RT min 3V IMPRESSION: Stable postsurgical changes. No mechanical failure Electronically authenticated by: ATTILA RUTH Date: 04/26/2023 10:04
== END 2023-04-25 09:19 | disposition home or self-care (01) ==
LOC: EC 09:18
PROVIDERS: Visit Provider Podiatrist Foot & Ankle Surgery
DX: M20.11 Hallux valgus (acquired), right foot (principal); Z98.890 Other specified postprocedural states
CPT/HCPCS: 73630

== ENCOUNTER 2023-07-04 08:56 | Outpatient (OUT) | payer BC, SELFPAY ==
--- NOTE | 2023-07-04 | XR_ITS ---
The [address] [address] Patient Name: KE ÁLVAREZ MRN: [id number] date: 1975 Sex: M Assigned Patient Location: Current Patient Location: Accession/Order Number: [id number] Exam Date: 07/04/2023 09:25 Report Date: 07/04/2023 11:20 At the request of: HELLEN MONK Procedure: XR foot RT min 3V PROCEDURE: XR foot RT min 3V HISTORY: RIGHT FOOT PAIN COMPARISON: XR foot right 04/25/2023 FINDINGS: BONES:Mechanical fusion of the first metatarsophalangeal joint via dorsal plate and screws. Prior osteotomy and repair of head of second metatarsal. Resection of heads of second through 5th proximal phalanges. SOFT TISSUES:No visible soft tissue swelling. EFFUSION:None visible. OTHER: Negative. XR/XR foot RT min 3V IMPRESSION: 1. Stable surgical changes without evidence of hardware failure or change in alignment. Electronically authenticated by: WILL VÁZQUEZ Date: 07/04/2023 11:20
--- OUTSIDE RECORDS SUMMARY | 2023-07-04 09:13 | XMS_ITS | CCD ---
Author Organization [facility] Care Team Providers Care Supervisor Home Economics Name Role Phone ROXANN BARRIOS Unavailable Unavailable SOPHIE, ROXANN Unavailable Unavailable HOUSE, NAKIA Unavailable Unavailable PROVIDER, UNKNOWN Unavailable Unavailable PROVIDER, UNKNOWN Unavailable Unavailable HOUSE, NAKIA Unavailable Unavailable PROVIDER, UNKNOWN Unavailable Unavailable ROALPHONSE, KE Unavailable Unavailable HOUSE, NAKIA Unavailable Unavailable PROVIDER, UNKNOWN Unavailable Unavailable PROVIDER, UNKNOWN Unavailable Unavailable HOUSE, NAKIA Unavailable Unavailable PROVIDER, UNKNOWN Unavailable Unavailable PROVIDER, UNKNOWN Unavailable Unavailable HOUSE, NAKIA Unavailable Unavailable HOUSE, DR CRUZ Admitting Unavailable HOUSE, DR CRUZ Attending Unavailable HOUSE, DR CRUZ Consulting Unavailable [place], DR ATTILA Aviles Consulting Unavailable HOUSE, DR CRUZ Attending Unavailable HOUSE, DR CRUZ Admitting Unavailable HOUSE, DR CRUZ Consulting Unavailable [facility], DR WILL Nichols Consulting [facility], Occupation Attending Unavailable HOUSE, ANTHONY Sanchez Attending Unavailable HOUSE, ANTHONY Sanchez Primary Care Unavailable Problems Active Problems Problem Classification Problem [...] Test Name Value Interpretation Reference Range Facility Patient Provided Health Data on 03-27-2023 Patient Provided Health Data [id number]#1.00OTGTI FF Normal [facility] Outside Recordson 03-23-2023 Outside Records [id number]#1.00OTGTIFF Normal [facility] Covid-19 PCR ([facility])on SARS-CoV-2 (COVID-19) RNA PARIS+probe Ql (Unsp spec) Detected Critically abnormal NOT DETECTED [facility] Comment on above: Result Comment: This test is not yet deepak roved or cleared by the [place] FDA. When there are no FDA-approved or cleared tests available, and other criteria are met, FDA can make tests available under an emergency access mechanism called an Emergency Use Authorization (EUA). The EUA for this test is supported by the [place] of Health and Human Service's (HHS's) declaration [...] longer be used). Performed By: #### C [facility] #### [facility] [address] [place] [address] Dr. Devin Gordon MRI SHOULDER LT WO [...] by: ATTILA RUTH Date: 2020-12-18 18:51 Normal [facility] XR FOREIGN BODY EYEon 2020 XR FOREIGN BODY EYE EXAMINATION: XR FOREIGN BODY EYE HISTORY: Foreign body in eye COMPARISON: No relevant comparison available. FINDINGS: ORBITS: Negative for a metallic foreign body. OTHER: Negative. IMPRESSION: 1. No radiopaque foreign body within the orbits. Electronically authenticated by: WILL VÁZQUEZ Date: 2020-12-18 14:06 Normal [facility] [address] [facility]FOOT RIGHT W/O [...] of the foot may be of benefit. KARELYI have reviewed the study and interpretationwith the resident and agree with the findings. Normal The [facility] Encounters Encounter Date Encounter Type Care Provider Facility Start: 03-22-2023 End: 03-23-2023 ambulatory ANTHONY MONTERROSO Facility:[facility]elle Start: 05-23-2022 ambulatory Occupation Health Facil ity:[facility] Start: 02-11-2021 End: 02-11-[address] ANTHONY MONTERROSO Facility:[facility] Start: 12-18-2020 End: 12-19-[address] ATTILA RUTH Facility:[facility] Start: 01-10-2017 Ambulatory ROXANN BARRIOS [facility] Start: 01-09-2017 End: 01-09-2017 Emergency department patient visit UNKNOWN PROVIDER Facility:[facility] Start: 01-09-2017 Ambulatory UNKNOWN PROVIDER Facili ty:[facility] Procedures Date Procedure Procedure Detail Performing Clinician Start: 01-09-2017 Basic metabolic pane l calcium total ROXANN BARRIOS Start: 01-09-2017 Blood count complete auto&auto difrntl wbc ROXANN BARRIOS Start: 01-09-2017 CRUTCHES-SIZE AND DISPENSE ROXANN BARRIOS Start: 01-09-2017 Ct lower extremity w /o contrast material ROXANN BARRIOS Start: 01-09-2017 DISCHARGE PATIENT ROXANN BARRIOS Start: 01-09-2017 NPO ROXANN VALENTIN Start: 01-09-2017 Prothrombin time ROXANN CHU Start: 01-09-2017 Radex ankle complete minimum 3 views ROXANN BARRIOS Start: 01-09-2017 Radex foot complete minimum 3 views ROXANN BARRIOS Start: 01-09-2017 Thromboplastin time partial plasma/whole blood ROXANN BARRIOS Payers Date Payer Category Payer Self-pay 2016 Unknown [id number] 1975 Unknown [id number] [id number] [id number] 1975 Unknown [id number] 2.16.84 [id number] 1975 Unknown [id number] 2.16.8 [id number] 1960 [facility] SARA [id number] Unknown [id number] 2.16.84 [id number] Summary Purpose Family History No Family History Records FoundNo Family History Records FoundNo Family History Records FoundNo Family History Records Found Advance Directives No Advanced Directives Records FoundNo Advanced Directives Records FoundNo Advanced Directives Records FoundNo Advanced Directives Records Found Additional Source Comments (unrecognized sect ion and content) No Status Records FoundNo Status Records FoundNo Status Records FoundNo Status Records Found INFORMATION SOURCE (unrecogn ized section and content) DATE CREATED AUTHOR 08/01/2017 [facility] [employer] [facility] DATE CREATED AUTHOR AUTHOR'S ORGANIZ ATION 02/15/2021 [facility] pital DATE CREATED AUTHOR AUTHOR'S ORGANIZ ATION 05/24/2022 [facility] pital Acute DATE CREATED AUTHOR AUTHOR'S ORGANIZ ATION 03/28/2023 [facility] FOR RECORDS PERTAINING TO PATIENTS WHO ARE [...] BE BASED ON THE PRIMARY CLINICAL RECORDS. [facility] [employer] [facility]. provides no warranty or guarantee of the accuracy or completeness of information in this document.
== END 2023-07-04 08:57 | disposition home or self-care (01) ==
LOC: EC 08:56
PROVIDERS: Visit Provider Podiatrist Foot & Ankle Surgery
DX: M79.671 Pain in right foot (principal); Z98.890 Other specified postprocedural states
CPT/HCPCS: 73630

== ENCOUNTER 2023-09-30 07:02 | Outpatient (OUT) | payer BC, SELFPAY ==
--- OUTSIDE RECORDS SUMMARY | 2023-09-30 07:07 | XMS_ITS | CCD ---
Author Organization [facility] Care Team Providers Care Industrial Cleaning Technician Name Role Phone SOPHIE, ROXANN Unavailable Unavailable HIRSCHFELD, ROXANN Unavailable Unavailable HOUSE, NAKIA Unavailable Unavailable [...] Attending Unavailable HOUSE, DR CRUZ Consulting Unavailable [place], DR ATTILA Aviles Consulting Unavailable HOUSE, DR CRUZ Attending Unavailable HOUSE, DR CRUZ Admitting Unavailable HOUSE, DR CRUZ Consulting Unavailable [facility], DR WILL Nichols Consulting Unavailable [facility], Occupation Attending Unavailable HOUSE, ANTHONY P Primary Care Unavailable HOUSE, DO ANTHONY P Attending Unavailable HOUSE, DO ANTHONY P Attending Unavailable HOUSE, ANTHONY P Primary Care Unavailable HOUSE, DO ANTHONY P Attending Unavailable HOUSE, ANTHONY P Primary Care Unavailable Problems Active Problems Problem [...] Name Value Interpretation Reference Range Facility Patient Letteron 09-25-2023 Patient Letter [id number]#1.00OTGTIFF [facility] Patient Provided Health Data on 03-27-2023 Patient Provided Health Data [id number]#1.00OTGTI FF [facility] Outside Recordson 03-23-2023 Outside Records [id number]#1.00OTGTIFF [facility] Covid-19 PCR ([facility])on SARS-CoV-2 (COVID-19) RNA PARIS+probe Ql (Unsp spec) Detected Critically abnormal NOT DETECTED [facility] Comment on above: Result Comment: This test is not yet deepak roved or cleared by the [place] FDA. When there are no FDA-approved or cleared tests available, and other criteria are met, FDA can make tests available under an emergency access mechanism called an Emergency Use Authorization (EUA). The EUA for this test is supported by the [place] of Health and Human Service's (HHS's) declaration [...] longer be used). Performed By: #### [facility] #### [facility] [address] [place] [address] Dr. Devin Gordon MRI SHOULDER LT WO [...] by: ATTILA RUTH Date: 2020-12-18 18:51 Normal [place] XR FOREIGN BODY EYEon 2020 XR FOREIGN BODY EYE EXAMINATION: XR FOREIGN BODY EYE HISTORY: Foreign body in eye COMPARISON: No relevant comparison available. FINDINGS: ORBITS: Negative for a metallic foreign body. OTHER: Negative. IMPRESSION: 1. No radiopaque foreign body within the orbits. Electronically authenticated by: WILL VÁZQUEZ Date: 2020-12-18 14:06 Normal [facility] CT ANKLE/FOOT RIGHT W/O CONT [place] 01-09-2017 CT ANKLE/FOOT RIGHT W/O CONTRAST EXAMINATIONCT [...] and agree with the findings. Normal The [facility] Encounters Encounter Date Encounter Type Care Provider Facility Start: 09-28-2023 ambulatory ANTHONY MONTERROSO Facilit y:[facility] Start: 09-21-2023 End: 09-21-2023 ambulatory DO ANTHONY MONTERROSO Facility:[facility] gisselle Start: 08-01-2023 ambulatory Occupation Health Facil ity:[facility] Start: 03-22-2023 End: 03-22-2023 ambulatory DO ANTHONY MONTERROSO Facility:[facility] Madhu gisselle Start: 02-11-2021 End: 02-11-[address] ANTHONY MONTERROSO Facility:[facility] Start: 12-18-2020 End: 12-19-[address] ATTILA RUTH Facility:[facility] Start: 01-10-2017 Ambulatory ROXANN BARRIOS Facilit y:[facility] Start: 01-09-2017 End: 01-09-2017 Emergency department patient visit UNKNOWN PROVIDER Facility:[facility] Start: 01-09-2017 Ambulatory UNKNOWN PROVIDER Facili ty:[facility] Procedures Date Procedure Procedure Detail Performing [...] 01-09-2017 Radex ankle complete minimum 3 views RXOANN BARRIOS Start: 01-09-2017 Radex foot complete minimum 3 views ROXANN BARRIOS Start: 01-09-2017 Thromboplastin time partial plasma/whole blood ROXANN BARRIOS Payers Date Payer Category Payer Self-pay 2016 Unknown [id number] 1975 Unknown [id number] 2.16.84 [id number] 1975 Unknown [id number] 2.16.84 [id number] 1975 Unknown [id number] 2.16.8 [id number] 1975 Unknown [id number] 2.16.8 [id number] 1975 Unknown [id number] 2.16.[id number] [id number] [id number] 2.16.8 [id number] Medication management note 09-15-2023 Note Date & Type Note Facility 09-15-2023 Note Entered by GABRIELLE MONTERROSO DO on September 15, 2023 16:04:33 EDT From: ANTHONY MONTERROSO DO To: [facility]/pharmacy #[id number] Sent: 09/15/2023 16:04:32 EDT Subject: Medication Management Submitted: Complete:DULoxetine (DULoxetine 60 mg oral delayed release capsule) Signed by ANTHONY MONTERROSO DO 09/15/2023 16:04:00 EDT Approved DULoxetine (DULOXETINE HCL DR 60 MG CAP) TAKE 1 CAPSULE BY MOUTH EVERY DAY DO NOT CRUSH OR CHEW Qty: 90 cap(s) Days Supply: 90 Refills: 1 Substitutions Allowed Route To Pharmacy - [facility]/pharmacy #[id number] From: [id number] To: ANTHONY MONTERROSO DO Sent: September 14, 2023 11:43:47 PM CDT Subject: Medication Management Due: September 15, 2023 12:09:05 AM CDT On Hold Pending Signature Dispensed Drug: DULoxetine (DULoxetine 60 mg oral delayed release capsule), TAKE 1 CAPSULE BY MOUTH EVERY DAY DO NOT CRUSH OR CHEW Quantity: 90 cap(s) Days Supply: 90 Refills: 1 Substitutions Allowed Notes from Pharmacy: [facility] Summary Purpose Family History No Family History [...] and content) DATE CREATED AUTHOR 08/01/2017 [facility] [facility] DATE CREATED AUTHOR AUTHOR'S ORGANIZ ATION 02/15/2021 [facility] DATE CREATED AUTHOR AUTHOR'S ORGANIZ ATION 08/02/2023 [facility] Acute DATE CREATED AUTHOR AUTHOR'S ORGANIZ ATION 09/28/2023 [facility] FOR RECORDS PERTAINING TO PATIENTS [...] BE BASED ON THE PRIMARY CLINICAL RECORDS. [employer] [facility]. provides no warranty or guarantee of the accuracy or completeness of information in this document.
[2023-09-30 07:54] LABS: Alanine Aminotransferase 31 U/L (16-63); Albumin Globulin Ratio 1.2; Albumin Level 3.8 g/dL (3.4-5.0); Alkaline Phosphatase 71 U/L (46-116); Anion Gap 15.9; Aspartate Amino Transferase 19 U/L (15-37); BUN Creatinine Ratio 22.9; Bilirubin Total 0.3 mg/dL (0.2-1.0); Calcium 9.1 mg/dL (8.5-10.1); Carbon Dioxide 25.6 mmol/L (21.0-32.0); Chloride 104 mmol/L (98-107); Chol HDL Ratio 2.6; Cholesterol 157 mg/dL (<=200); Estimated GFR (African America >60 (>=60); Estimated GFR (Non-African Ame 58 (>=60); Globulin 3.2 g/dL; Glucose 99 mg/dL (74-106); HDL Cholesterol 61 mg/dL (40-60); Potassium 4.5 mmol/L (3.5-5.1); Sodium 141 mmol/L (136-145); Triglycerides 54 mg/dL (<=150); VLDL CHOLESTEROL 10.8 mg/dL
[2023-09-30 08:36] LABS: Basophils Percent Auto 0.6 % (0.2-2.0); Eosinophils Absolute Auto 0.1 10^3/uL (0.0-0.7); Eosinophils Percent Auto 1.4 % (0.9-7.0); Hematocrit 41.3 % (42.0-54.0); Hemoglobin 13.6 g/dL (14.0-18.0); Immature Granulocytes Abs Auto 0.01 10^3/uL (0.00-0.03); Immature Granulocytes Pct Auto 0.2 % (0.0-0.5); Lymphocytes Absolute Auto 2.3 10^3/uL (1.2-3.8); Lymphocytes Percent Auto 35.1 % (20.5-60.0); Mean Corpuscular HGB Conc 32.9 g/dL (29.9-35.2); Mean Corpuscular Hemoglobin 28.5 pg (25.9-34.0); Mean Corpuscular Volume 86.4 fL (80.0-94.0); Mean Platelet Volume 9.3 fL (9.5-13.5); Monocytes Absolute Auto 0.6 10^3/uL (0.3-0.8); Monocytes Percent Auto 9.1 % (1.7-12.0); Neutrophils Absolute Auto 3.5 10^3/uL (1.4-6.5); Neutrophils Percent Auto 53.6 % (43.0-75.0); Platelet Count 315 10^3/uL (150-450); Red Blood Count 4.78 10^6/uL (4.70-6.10); Red Cell Distribution Width 12.7 % (11.0-15.0); White Blood Count 6.6 10^3/uL (4.0-11.0)
[2023-10-01 08:08] LABS: Testosterone 413 ng/dL (264-916)
== END 2023-09-30 07:03 | disposition home or self-care (01) ==
LOC: LAB 07:04
PROVIDERS: Visit Provider Family Medicine
DX: E29.1 Testicular hypofunction (principal); I10 Essential (primary) hypertension; F41.9 Anxiety disorder, unspecified; F32.A Depression, unspecified
CPT/HCPCS: 36415; 80053; 80061; 84403; 85025